=== PATIENT | female | born 1940 | race Caucasian/White ===

== ENCOUNTER 2022-06-18 14:35 | Emergency (ER) | payer MEDICARE, OTHER, SELFPAY ==
[2022-06-18 14:35] VITALS: BP 133/87; PULSE 79; RESP 18; TEMP 35.5; O2SAT 96; BMI 22.1
--- NOTE | 2022-06-18 15:01 | ED.VIS.BACK ---
HPI History of Present Illness Chief Complaint: Back Narrative Narrative: 82-year-old male past medical history of hypertension and hyperlipidemia presents with low back pain after lifting furniture 2 days ago. She states that she was moving and lifting furniture on Sunday and felt a pop in her low back. She has not had problems with her lumbar spine in the past. She denies any red flag signs such as fever or chills, no loss of bowel or bladder, no saddle anesthesia. The pain does not radiate down her legs. It is somewhat worse with movement. She has been taking Tylenol with mild relief. As she states that she heard and felt a loud pop, she presents to the emergency department wanting evaluation for her low back pain. [facility] Medical History Atherosclerotic heart disease of [place] coronary artery without angina pectoris Essential hypertension Mixed hyperlipidemia Presence of stent in coronary artery (~10/27/10) Home Medications aspirin 81 mg tablet,delayed release (Adult Low Dose Aspirin) 81 mg PO DAILY 11/23/20 [History Last Taken Unknown] atorvastatin 10 mg tablet 10 mg PO QHS 11/23/20 [History Last Taken Unknown] oxyquinoline 0.025 %-sodium lauryl sulfate 0.01 % vaginal gel (Trimo-Arana Jelly) ea vaginal DIRECTED 11/23/20 [History Last Taken Unknown] Allergy/AdvReac Type Severity Reaction Status Date / Time No Known Allergies Allergy Verified 06/18/22 14:37 Family History Mother Cancer Pancreatic Father Cancer Prostate Surgical History History of appendectomy Presence of coronary angioplasty implant and graft (~10/27/10) Social History Smoking Status: Never smoker alcohol intake: never substance use type: does not use caffeine: Yes Type: coffee Number of servings: 2 ROS ROS ED ROS Narrative Constitutional: No fever, no chills. HEENT: No sore throat. No neck pain. No loss of vision. No rhinorrhea. Cardiovascular: No chest pain. No palpitations. No pedal edema. Respiratory: No cough, no shortness of breath. Abdominal: No abdominal pain. No nausea. No vomiting. Genitourinary: No dysuria. No hematuria. Musculoskeletal: No myalgias. No arthralgias. Low back pain, right paraspinal, worse with movement. Neurologic: No headaches. No dizziness. No lightheadedness. Skin: No rash. No change in color. Psychiatric: No depression. No anxiety. EXAM Physical Exam Narrative Exam Narrative: Afebrile. Vital signs noted. HEENT: Normocephalic. Atraumatic. PERRL, EOMI. Neck soft and supple. No point tenderness or step off. Cardiovascular: Regular rate and rhythm. No murmurs, rubs, or gallops appreciated. Respiratory: No tachypnea. Lungs clear to auscultation bilaterally. Gastrointestinal: Abdomen soft, nontender, with normoactive bowel sounds. No rebound or guarding. Neurological: Awake. Alert. Nonfocal, nonlateralizing. Straight leg raising is negative bilaterally. No cross symptoms. Patellar DTRs equal and symmetric. Skin: No rash. Normal color. No pallor. Musculoskeletal: No pedal edema. Full range of motion extremities. Mild tenderness to palpation right paraspinal musculature. No point tenderness or step-off. Const Vital Signs: 06/18/22 14:35 Temperature 96 F L Temperature Source Temporal Pulse Rate 79 Respiratory Rate 18 Blood Pressure 133/87 H Blood Pressure Mean 102 Pulse Ox 96 Oxygen Delivery Method Room Air MDM MDM MDM Narrative Medical decision making narrative: Patient declines any stronger analgesics here in the emergency department. Concern would be for compression fracture. She may have more of a lumbosacral strain. X-rays of the lumbar spine will be obtained and interpreted by myself. I have low concern for cauda equina syndrome as she has a normal neurological examination and does not complain of any other symptoms except for localized pain in her right paraspinal low back. I reviewed and interpreted her lumbar x-rays. There are a lot of degenerative changes and there is malalignment. There is no prior with which to compare so I am concerned that there may be underlying fracture given her pain, and the appearance of the alignment of the vertebral bodies. I reviewed the radiology report for the lumbar spine x-rays which shows diffuse degenerative disc disease without acute bony abnormality, but 3 mm of spondylolisthesis of L4 on L5. CT of the lumbar spine was obtained. I reviewed the radiology report, and it shows mild acute to subacute compression fracture of L1. However, that is not where the patient is having pain. Regardless, she was informed of the compression fracture, and she was offered narcotic pain medications but declined. She states she would prefer to take Tylenol and follow-up with her primary care provider. I feel she can be discharged safely home with follow-up. Return instructions to the emergency department were reviewed. Disposition is discharged home in stable condition. Radiography Diagnostic Testing: Clinical Impression(s) from Imaging Studies Lumbar Spine X-Ray 06/18/22 15:05 IMPRESSION: Diffuse degenerative disc disease without acute bony abnormality. Electronically Signed: Aníbal Holden MD at 16:09 EDT , Lumbar Spine CT 06/18/22 15:26 IMPRESSION: Mild acute to subacute compression fracture of L1. Electronically Signed: Aníbal Holden MD at 16:47 EDT , Discharge Plan Triage Chief Complaint: Back ED Provider: Fernando Benitez Dx/Rx/DC Orders Clinical Impression: Sprain of lumbar spine, Low back pain, Spondylolisthesis at L4-L5 level, Compression fracture of L1 lumbar vertebra Instructions: ED Back Pain (Acute or Chronic), ED Back Sprain/Strain, ED Fracture, Vertebral Compression Prescriptions: No Action atorvastatin 10 mg tablet 10 mg PO QHS aspirin [Adult Low Dose Aspirin] 81 mg tablet,delayed release (DR/EC) 81 mg PO DAILY Trimo-Arana Jelly 0.025-0.01 % gel vaginal DIRECTED Primary Care Provider: Taryn Fry Referrals: Taryn Fry MD [[facility]] - 3-5 Days if not improving Disposition Disposition: Home, Self Care
--- NOTE | 2022-06-18 15:05 | RAD_ITS ---
INDICATION: Back pain after moving furniture, no radiculopathy EXAMINATION/TECHNIQUE: X-RAY - XR Spine Lumbar 2 or 3 Views COMPARISON: None. FINDINGS: VERTEBRAE: Preserved vertebral body height. No acute fracture. 3 mm spondylolisthesis at L4-5. Preservation of the normal lumbar lordosis. Mild scoliosis with rotatory component. DISCS: Diffuse degenerative disc space loss from L2-3 through L4-5. INCLUDED ABDOMEN: Included bowel gas pattern is non-obstructive. RAD/Lumbar Spine 2 or 3 Views IMPRESSION: Diffuse degenerative disc disease without acute bony abnormality. Electronically Signed: Aníbal Holden MD at 16:09 EDT ,
--- NOTE | 2022-06-18 15:26 | CT_ITS ---
INDICATION: back pain, suspected fracture EXAMINATION: CT LUMBAR SPINE - CT Spine Lumbar W/O Contrast Injection TECHNIQUE: Helically acquired images were obtained of the lumbar spine. 2D reformats were reviewed. A radiation dose optimization technique was used for this scan. IV Contrast dosage and agent: None. RADIATION DOSAGE (If Supplied By Facility): CTDIvol = ( 13.82 ) mGy, DLP = ( 342.75 ) mGycm COMPARISON: None FINDINGS: VERTEBRAE: Mild inferior endplate deformity with minimal overall loss of height L1 vertebral body. Cortical characteristics suggest possible acute to subacute chronicity. Remaining vertebral bodies without loss of height. Minimal retrolisthesis L2 on L3 with minimal spondylolisthesis L4 on L5. DISCS and SPINAL CANAL: Severe disc space narrowing L2-3, L3-4 and L4-5. VISUALIZED ABDOMEN: Visualized abdominal aorta is not dilated. CT/Spine Lumbar without Contrast IMPRESSION: Mild acute to subacute compression fracture of L1. Electronically Signed: Aníbal Holden MD at 16:47 EDT ,
[2022-06-18 17:05] VITALS: RESP 14
== END 2022-06-18 17:08 | disposition home or self-care (01) ==
PROVIDERS: Emergency Provider Emergency Medicine; PCP Internal Medicine; Visit Provider Emergency Medicine
DX: M48.56XA Collapsed vertebra, not elsewhere classified, lumbar region, initial encounter for fracture (principal); E78.2 Mixed hyperlipidemia; I10 Essential (primary) hypertension; I25.10 Atherosclerotic heart disease of native coronary artery without angina pectoris; M43.16 Spondylolisthesis, lumbar region; S33.5XXA Sprain of ligaments of lumbar spine, initial encounter; X50.0XXA Overexertion from strenuous movement or load, initial encounter
CPT/HCPCS: 72100; 72131; 99282

== ENCOUNTER 2022-11-06 08:06 | Emergency (ER) | payer MEDICARE, OTHER, SELFPAY ==
[2022-11-06 08:06] VITALS: BP 145/88; PULSE 92; RESP 18; TEMP 36.1; O2SAT 99; BMI 20.1
--- NOTE | 2022-11-06 08:40 | EDS_ITS ---
HPI HPI - GI History of Present Illness Chief Complaint: Abd Pain Informant: patient Abdominal Pain/Flank Pain Onset: Yesterday Context: Gradual Onset Timing: Continuous Quality: Sharp Location: RLQ Worsened by: Nothing Relieved by: Nothing Nausea/Vomiting/Emesis GI Symptom: Negative for Nausea or Vomiting Diarrhea/Melena/Hematochezia GI Symptom: Negative for Diarrhea, Melena or Hematochezia Associated Symptoms Associated Symptoms: Negative for Dysuria, Frequency or Hematuria Narrative Narrative: Patient presents with abdominal pain that began yesterday. Patient states it came on gradually. Patient states it has been constant. Patient describes her pain as sharp. Patient states the pain is over the right lower abdomen. Patient states nothing makes it better and nothing makes it worse. Patient denies any nausea or vomiting. Patient denies any diarrhea, melena, or hematochezia. Patient denies any dysuria, frequency, or hematuria. Patient denies any fevers or chills. PFSH PFSH Medical History Atherosclerotic heart disease of [place] coronary artery without angina pectoris Essential hypertension Mixed hyperlipidemia Presence of stent in coronary artery (~10/27/10) Home Medications aspirin 81 mg tablet,delayed release (Adult Low Dose Aspirin) 81 mg PO DAILY 11/23/20 [History Last Taken Unknown] atorvastatin 10 mg tablet 10 mg PO QHS 11/23/20 [History Last Taken Unknown] oxyquinoline 0.025 %-sodium lauryl sulfate 0.01 % vaginal gel (Trimo-Arana Jelly) ea vaginal DIRECTED 11/23/20 [History Last Taken Unknown] sulfamethoxazole 800 mg-trimethoprim 160 mg tablet 1 tab PO BID #6 TABLETS 11/06/22 [Rx Last Taken Unknown] Allergy/AdvReac Type Severity Reaction Status Date / Time No Known Allergies Allergy Verified 06/18/22 14:37 Family History Mother Cancer Pancreatic Father Cancer Prostate Surgical History History of appendectomy Presence of coronary angioplasty implant and graft (~10/27/10) Social History Smoking Status: Never smoker alcohol intake: never substance use type: does not use caffeine: Yes Type: coffee Number of servings: 2 ROS ROS ED Constitutional Constitutional ED: Denies chills or fever(s) Eyes Eyes: Denies blurry vision or change in vision ENT ENT ED: Denies rhinorrhea or sore throat Cardiovascular Cardiovascular: Denies chest pain or palpitations Respiratory/Chest Respiratory/Chest: Denies cough or dyspnea Gastrointestinal Gastrointestinal: Reports abdominal pain; Denies nausea or vomiting Genitourinary Genitourinary ED: Denies dysuria or hematuria Musculoskeletal Musculoskeletal: Denies back pain or neck pain Integumentary Denies abscess or rash Neurologic Neurologic: Denies headache(s) or weakness Allergic/Immunologic Allergic/Immunologic ED: Denies mouth swelling or urticaria EXAM Physical Exam Const Vital Signs: 11/06/22 08:06 11/06/22 11:00 Temperature 96.9 F L Temperature Source Temporal Pulse Rate 92 Respiratory Rate 18 16 Blood Pressure 145/88 H Blood Pressure Mean 107 Pulse Ox 99 Oxygen Delivery Method Room Air Positive well nourished and well developed General Appearance ED: well developed and NAD HEENT Reports moist mucous membranes Neck supple and no JVD Resp normal respiratory effort and clear to auscultation bilaterally Cardio regular rate, regular rhythm and no murmurs GI normal to inspection, nondistended, normoactive bowel sounds Palpation: soft and tender RLQ; Negative for guarding or rebound tenderness present Extremity normal to inspection General Extremety ED: Negative for edema or tenderness General Extremity: Negative for edema Neuro oriented x3, CN's II-XII intact bilaterally and no sensory deficits noted Sensorium / Orientation: alert Motor Exam: strength 5/5 throughout Psych mental status grossly normal Skin no rashes or lesions noted MDM MDM MDM Narrative Medical decision making narrative: Differential diagnosis includes bowel obstruction, perforation, colitis, urinary tract infection, ureteral calculus, and mesenteric adenitis. CT scan of the abdomen pelvis will be obtained to assess for ureteral calculus, bowel obstruction, and perforation. CBC will be obtained to assess for leukocytosis and anemia. Comprehensive metabolic profile will be obtained to assess for hepatic function, renal function, and electrolyte abnormality. Urinalysis will be obtained to assess for urinary tract infection and hematuria. Lab Data Attestation: I reviewed the patient's lab results. Lab results narrative: CBC was reviewed and was within normal limits. Comprehensive metabolic profile was reviewed and was within normal limits. Urinalysis was reviewed. Leukocyte esterase was 100. There were 10-25 white blood cells and 1+ bacteria. Labs: Laboratory Results - last 24 hr 11/06/22 11/06/22 09:15 09:52 WBC 6.8 RBC 4.17 L Hgb 13.0 Hct 40.2 MCV 96.4 MCH 31.2 MCHC 32.3 RDW Std Deviation 49.2 H RDW Coeff of Bruce 13.8 Plt Count 296 MPV 10.1 Immature Gran % (Auto) 0.100 Neut % (Auto) 67.9 Lymph % (Auto) 15.8 L [place] % (Auto) 13.0 H Eos % (Auto) 2.5 Baso % (Auto) 0.7 Absolute Neuts (auto) 4.6 Absolute Lymphs (auto) 1.08 Nucleated RBC % 0 Sodium 144 Potassium 3.7 Chloride 107 Carbon Dioxide 29.0 Anion Gap 8 BUN 23 H Creatinine 0.75 Estim Creat Clear Calc 35.38 Est GFR (MDRD) Af Amer 95 Est GFR (MDRD) Non-Af 79 BUN/Creatinine Ratio 30.7 H Glucose 115 H Calcium 8.9 Total Bilirubin 0.50 AST 15 ALT 13 Alkaline Phosphatase 75 Total Protein 6.6 Albumin 3.4 Globulin 3.2 Albumin/Globulin Ratio 1.1 Urine Color Yellow Urine Clarity Sl. Cloudy Urine pH 5.0 Ur Specific [place] 1.020 Urine Protein 15 H Urine Glucose (UA) Normal Urine Ketones 5 H Urine Occult Blood 25 H Urine Nitrite Negative Urine Bilirubin Negative Urine Urobilinogen Normal Ur Leukocyte Esterase 100 H Urine RBC 0-5 SEEN Urine WBC 10-25 SEEN Ur Squamous Epith Cells 0-5 SEEN Ur Transition Epith Cell 0-5 SEEN Urine Bacteria 1+ Urine Mucus 0 SEEN Radiography Diagnostic Testing: Clinical Impression(s) from Imaging Studies Abdomen/Pelvis CT 11/06/22 08:46 IMPRESSION: Small right adrenal adenoma measuring 9 mm. Small hiatal hernia. Distended urinary bladder. Electronically Signed: Prosper Comer MD at 10:06 EDT , CT scan of the abdomen pelvis was obtained. There is a small right adrenal adenoma measuring 9 mm. There is a small hiatal hernia. There is no acute abnormality noted. This was interpreted by the radiologist and was also independently reviewed by myself. Treatment and Re-Evaluation :: Patient was given IV fluids. Patient was advised of her findings. Urine culture was ordered. Patient was given a dose of Bactrim here. Patient was given a prescription for Bactrim. Patient was instructed to drink plenty of fluids. Patient was instructed to follow-up with her primary care physician in 5 to 7 days. Patient understood and was agreeable with the plan. All questions were answered. Discharge Plan Triage Chief Complaint: Abd Pain ED Provider: Kwaku Jackson Dx/Rx/DC Orders Clinical Impression: Urinary tract infection, Essential hypertension Instructions: ED Cystitis Female Adult Prescriptions: New sulfamethoxazole-trimethoprim [sulfamethoxazole-trimethoprim] 800-160 mg tablet 1 tab PO BID Qty: 6 0RF No Action atorvastatin 10 mg tablet 10 mg PO QHS aspirin [Adult Low Dose Aspirin] 81 mg tablet,delayed release (DR/EC) 81 mg PO DAILY Trimo-Arana Jelly 0.025-0.01 % gel vaginal DIRECTED Primary Care Provider: Taryn Fry Referrals: Taryn Fry MD [Primary Care Provider] - 5-7 Days Disposition Disposition: Home, Self Care
--- NOTE | 2022-11-06 08:46 | CT_ITS ---
STUDY: CT ABDOMEN AND PELVIS WITHOUT CONTRAST REASON FOR EXAM: Female, 82 years old. Right lower quadrant pain. History of prior appendectomy. RADIATION DOSAGE (If Supplied By Facility): CTDIvol = ( 6.08 ) mGy, DLP = ( 259.74 ) mGycm TECHNIQUE: Transaxial images were obtained from the dome of the diaphragm to the symphysis pubis without oral contrast, and without intravenous contrast. Sagittal and coronal images were reconstructed. Individualized dose optimization techniques were used for this CT. COMPARISON: None. FINDINGS: Increased linear markings at the lung bases slightly more prominent in the posterior medial segment of the left lower lobe suggests scarring. Coronary artery calcification. Calcification of mitral valve annulus. Minimal anterior pericardial thickening. Normal liver. Normal gallbladder and extrahepatic biliary system. Normal spleen. Normal pancreas. There is a small, circumscribed, smooth, low attenuation right adrenal mass, consistent with an adrenal adenoma. This measures 9.1 mm. Normal left adrenal gland. 3 mm nonobstructive calculus in the lower pole calyx of the right kidney. Focal calcification in the anterior medial aspect of the superior pole of the left kidney. There is a small hiatal hernia. Normal small intestine. There are multiple colonic diverticula consistent with diverticulosis. There is non-visualization of the appendix. There is diffuse atherosclerotic calcification of the abdominal aorta and its major visceral branches, without a demonstrated aneurysm. Normal inferior vena cava. Normal retroperitoneum. Distended urinary bladder. Calcified fibroid uterus. Normal abdominal wall. There are diffuse degenerative changes of the visualized lumbar spine. Dextroscoliosis. Complete collapse of the L1 vertebrae. CT/Abdomen/Pelvis without Cont IMPRESSION: Small right adrenal adenoma measuring 9 mm. Small hiatal hernia. Distended urinary bladder. Electronically Signed: Prosper Comer MD at 10:06 EDT ,
[2022-11-06 09:26] LABS: Absolute Lymphocyte Count 1.08 X10^3/uL (0.83-4.51); Absolute Neutrophil Count 4.6 X10^3/uL (2.0-7.7); Basophil# 0.05 X10^3/uL; Basophil% 0.7 % (0-1); Eosinophil# 0.17 X10^3/uL; Eosinophils% 2.5 % (0-5); Hematocrit 40.2 % (37-47); Lymphocyte # 1.08 X10^3/ul (0.83-4.51); Lymphocyte % 15.8 % (19-41); Mean Corp Hgb Conc 32.3 g/dL (32-36); Mean Corpuscular Hgb 31.2 pg (27.0-32.0); Mean Corpuscular Volume 96.4 fL (81-99); Mean Platelet Vol. 10.1 fl (6.2-12.0); Monocyte# 0.89 X10^3/uL; NRBC Flagged by Analyzer 0 % (0-5); Neutrophil # 4.64 X10^3/uL (2.7-7.7); Neutrophil % 67.9 % (47-70); Platelet Count 296 K/mm3 (150-450); RBC Distribution Width CV 13.8 % (11.6-14.6); RBC Distribution Width SD 49.2 fl (35.1-43.9); Red Blood Count 4.17 M/mm3 (4.2-5.4); White Blood Count 6.8 K/mm3 (4.4-11.0)
[2022-11-06 09:39] LABS: ALB/GLOB Ratio 1.1 RATIO (0.9-2.4); AST(SGOT) 15 U/L (15-37); Alanine Aminotransfer ALT/SGPT 13 U/L (13-56); Albumin, Serum 3.4 g/dL (3.2-5.0); Alkaline Phosphatase 75 U/L (45-117); Anion Gap 8 (5-15); BUN 23 mg/dL (7-18); BUN/Creat Ratio 30.7 RATIO (10-20); Calcium,Total 8.9 mg/dL (8.5-10.1); Chloride 107 mmol/L (98-107); Creatinine, Serum 0.75 mg/dL (0.55-1.02); EST Glomerular Filtration Rate 79 mL/min (>60); Est Glom Filt Rate - Afr Amer 95 mL/min (>60); Estimated Creatinine Clearance 35.38 ml/min; Globulin 3.2 g/dL (2.2-4.2); Glucose 115 mg/dL (74-106); Potassium 3.7 mmol/L (3.5-5.1); Protein, Total 6.6 g/dL (6.4-8.2); Sodium Level 144 mmol/L (136-145)
[2022-11-06] MEDS: 0.9% Normal Saline (1000mL) 1,000 ML 1000 ML IV (09:45)
[2022-11-06 10:05] LABS: Mucous, Urine 0 SEEN /hpf (<or=2+)
[2022-11-06 10:42] LABS: Color, Urine Yellow (Yellow); Glucose, Dipstick Normal (Normal); Ketone-Dipstick 5 mg/dl (Negative); Leukocyte Esterase-Dipstick 100 /ul (Negative); Nitrite-Dipstick Negative (Negative); Occult Blood-Urine 25 /ul (Negative); Protein-Dipstick 15 mg/dl (Negative); Urine Bilirubin Dipstick Negative (Negative); Urine Clarity Sl. Cloudy (Clear); Urine Urobilinogen Normal (Normal)
[2022-11-06 11:00] VITALS: RESP 16
[2022-11-06 11:16] LABS: Bacteria 1+ /hpf (None Seen); Red Blood Cells-Urine 0-5 SEEN /hpf (0-5); Squamous Epithelial Cells - UA 0-5 SEEN /hpf (5-10); Transitional Epithelial - Ur 0-5 SEEN /hpf (0-5); White Blood Cells 10-25 SEEN /hpf (0-5)
[2022-11-06] MEDS: Smz/Tmp Ds Tablet 1 TABLET PO (11:43)
== END 2022-11-06 11:45 | disposition home or self-care (01) ==
PROVIDERS: Emergency Provider Emergency Medicine; PCP Internal Medicine; Visit Provider Emergency Medicine
DX: N39.0 Urinary tract infection, site not specified (principal); I10 Essential (primary) hypertension; I25.10 Atherosclerotic heart disease of native coronary artery without angina pectoris; Z95.5 Presence of coronary angioplasty implant and graft
CPT/HCPCS: 74176; 80053; 81001; 85025; 87086; 87088; 96360; 96361; 99284; J7030; A4216

== ENCOUNTER 2022-12-01 14:51 | Inpatient (IN) | payer MEDICARE, OTHER, SELFPAY ==
[2022-12-01 14:54] VITALS: BP 121/77; PULSE 96; RESP 18; TEMP 36.2; O2SAT 95
--- NOTE | 2022-12-01 16:31 | ED.VIS.LOWEX ---
HPI History of Present Illness Chief Complaint: Lower Extremity Injury Narrative Narrative: 82-year-old female presenting with nontraumatic left hip pain. She states that she twisted something a couple weeks ago. She is progressively having worse pain in the hip. It radiates down the left knee. She did not fall or have any direct trauma. Difficulty ambulating secondary to pain but she is able to ambulate. [facility] Medical History Atherosclerotic heart disease of [place] coronary artery without angina pectoris Essential hypertension Mixed hyperlipidemia Presence of stent in coronary artery (~10/27/10) Home Medications aspirin 81 mg tablet,delayed release (Adult Low Dose Aspirin) 81 mg PO DAILY 11/23/20 [History Last Taken Unknown] atorvastatin 10 mg tablet 10 mg PO QHS 11/23/20 [History Last Taken Unknown] Allergy/AdvReac Type Severity Reaction Status Date / Time No Known Allergies Allergy Verified 12/01/22 14:53 Family History Mother Cancer Pancreatic Father Cancer Prostate Surgical History History of appendectomy Presence of coronary angioplasty implant and graft (~10/27/10) Social History Smoking Status: Never smoker alcohol intake: never substance use type: does not use caffeine: Yes Type: coffee Number of servings: 2 ROS ROS ED Constitutional Constitutional ED: Denies chills, fever(s) or sweats Eyes Eyes: Denies blurry vision or change in vision ENT ENT ED: Denies ear pain or sore throat Cardiovascular Cardiovascular: Denies chest pain, palpitations or racing heartbeat Respiratory/Chest Respiratory/Chest: Denies cough, dyspnea or sputum Gastrointestinal Gastrointestinal: Denies abdominal pain, constipation, diarrhea, nausea or vomiting Genitourinary Genitourinary ED: Denies dysuria, hematuria or urinary frequency Musculoskeletal Musculoskeletal: Reports other Details: Left hip pain ; Denies arthralgias, myalgias or neck pain Integumentary Denies abscess, Abrasions or rash Neurologic Neurologic: Denies headache(s), paresthesias or weakness Psychiatric Psychiatric: Denies anxiety, depression, suicidal ideation or suicidal thoughts Endocrine Endocrinology: Denies polydipsia or polyuria EXAM Physical Exam Const Vital Signs: 12/01/22 14:54 Temperature 97.1 F L Temperature Source Temporal Pulse Rate 96 Respiratory Rate 18 Blood Pressure 121/77 H Blood Pressure Mean 91 Pulse Ox 95 Oxygen Delivery Method Room Air Positive well nourished General Appearance ED: NAD HEENT normocephalic and atraumatic Chest Wall inspection of chest normal Resp normal respiratory effort and no retractions Auscultation: Negative for rales, rhonchi or wheezes Cardio regular rate and regular rhythm Extremity Extremity Narrative: Pain with rotation of the left hip. No deformity. Neuro oriented x3 and CN's II-XII intact bilaterally Sensorium / Orientation: alert Motor Exam: strength 5/5 throughout Psych mental status grossly normal Skin no wounds MDM MDM MDM Narrative Medical decision making narrative: Presenting with left hip pain. Differential includes muscle strain, hip fracture. Patient has been ambulatory but states that it is very painful. X-ray of the left hip on my interpretation shows a normal head fracture. The radiologist interprets this and agrees. Case was discussed with Dr. Santiago Larson who felt that this was likely degenerative changes and recommended a CT. At this point I did add a CBC to assess white blood cell count, hemoglobin, platelets. BMP to assess renal function electrolytes. Obtain EKG for preop clearance with shows a normal sinus rhythm at a ventricular of 82 bpm without sign ischemic change or ectopy. High-sensitivity troponin is 10. I obtained a preop chest x-ray which on my interpretation shows no acute process. CT of the left hip was obtained which shows acute comminuted fracture of the femoral head. Dr. Larson is notified and recommends that we call the hospitalist for the admission. I spoke with the hospitalist and patient was admitted in stable condition. Impression: 1. Left femoral head fracture Lab Data Labs: Laboratory Results - last 24 hr 12/01/22 17:28 WBC 9.0 RBC 4.39 Hgb 13.2 Hct 42.1 MCV 95.9 MCH 30.1 MCHC 31.4 L RDW Std Deviation 46.8 H RDW Coeff of [place] 13.2 Plt Count 431 MPV 8.9 Immature Gran % (Auto) 0.300 Neut % (Auto) 68.9 Lymph % (Auto) 16.2 L [place] % (Auto) 13.3 H Eos % (Auto) 0.7 Baso % (Auto) 0.6 Absolute Neuts (auto) 6.2 Absolute Lymphs (auto) 1.45 Nucleated RBC % 0 Sodium 139 Potassium 3.7 Chloride 105 Carbon Dioxide 27.0 Anion Gap 7 BUN 18 Creatinine 0.80 Est GFR (MDRD) Af Amer 89 Est GFR (MDRD) Non-Af 73 BUN/Creatinine Ratio 22.6 H Glucose 91 Calcium 9.3 Troponin I High Sens 10 Radiography Diagnostic Testing: Clinical Impression(s) from Imaging Studies Hip/Pelvis X-Ray 12/01/22 16:45 IMPRESSION: Flattening and deformity of the femoral head with suspected acute fracture. CT of the left hip is suggested for further evaluation. Electronically Signed: Shae Rogers MD at 17:05 EDT Reading Location ID and State: Jada Arenas MD Tel , Service support , Lower Extremity CT 12/01/22 17:21 IMPRESSION: Acute comminuted fracture of the left femoral head. Electronically Signed: Shae Rogers MD at 18:21 EDT Reading Location ID and State: Jada Arenas MD Tel , Service support , Chest X-Ray 12/01/22 17:47 IMPRESSION: No radiographic evidence of acute cardiopulmonary disease. Electronically Signed: Shae Rogers MD at 18:23 EDT Reading Location ID and State: Jada Arenas MD Tel , Service support , Discharge Plan Triage Chief Complaint: Lower Extremity Injury ED Provider: Brian Veronica Dx/Rx/DC Orders Prescriptions: No Action atorvastatin 10 mg tablet 10 mg PO QHS aspirin [Adult Low Dose Aspirin] 81 mg tablet,delayed release (DR/EC) 81 mg PO DAILY Primary Care Provider: Taryn Fry Referrals: Taryn Fry MD [Primary Care Provider] -
--- NOTE | 2022-12-01 16:45 | RAD_ITS ---
INDICATION: hip EXAMINATION/TECHNIQUE: X-RAY - XR Hip Unilateral with Pelvis when performed; 2-3 Views COMPARISON: CT abdomen pelvis 11/06/2022. FINDINGS: Flattening and deformity of the femoral head, suspicious for acute impaction fracture. Findings are new compared to the prior CT scan. Normal alignment. Soft tissues are unremarkable. No radiopaque foreign body or soft tissue gas. RAD/HIP, UNI W/ Pelvis 2-3 Views IMPRESSION: Flattening and deformity of the femoral head with suspected acute fracture. CT of the left hip is suggested for further evaluation. Electronically Signed: Shae Rogers MD at 17:05 EDT Reading Location ID and State: [id number] / Tel , Service support ,
[2022-12-01] MEDS: Ketorolac 30 MG/ML Syringe 15 MG IM (16:56)
--- NOTE | 2022-12-01 17:08 | EKG12_ITS ---
Test Reason : HIP PAIN Blood Pressure : / mmHG Vent. Rate : 082 BPM Atrial Rate : 082 BPM P-R Int : 120 ms QRS Dur : 072 ms QT Int : 378 ms P-R-T Axes : 066 050 060 degrees QTc Int : 441 ms Normal sinus rhythm Low voltage QRS Borderline ECG Confirmed by ROMINA DHILLON, VIDAL ([id number]), video editor BRIGETTE ALBA ([id number]) on 12/05/2022 11:49:43 AM Referred By: CLARITA Confirmed By:VIDAL VANEGAS MD
--- NOTE | 2022-12-01 17:21 | CT_ITS ---
EXAM: CT LEFT LOWER EXTREMITY WITHOUT INTRAVENOUS CONTRAST CLINICAL INDICATION: hip fracture TECHNIQUE: Helically acquired images were obtained of the left lower extremity without intravenous contrast. 2-D reformats were performed by the technologist. This CT exam was performed using one or more of the following dose reduction techniques: automated exposure control, adjustment of the mA and/or kV according to patient size, and/or use of iterative reconstruction technique. COMPARISON: No relevant prior studies available. FINDINGS: BONES/JOINTS: Acute to subacute comminuted fracture of the left femoral head, greatest medially. 9 mm loose fragment in the medial joint space. Femoral neck is intact. Mild joint space narrowing superolaterally. SOFT TISSUES: No soft tissue swelling or gas. CT/Extremity Lower without Contra IMPRESSION: Acute comminuted fracture of the left femoral head. Electronically Signed: Shae Rogers MD at 18:21 EDT Reading Location ID and State: [id number] / Tel , Service support ,
[2022-12-01 17:40] LABS: Absolute Lymphocyte Count 1.45 X10^3/uL (0.83-4.51); Absolute Neutrophil Count 6.2 X10^3/uL (2.0-7.7); Basophil# 0.05 X10^3/uL; Basophil% 0.6 % (0-1); Eosinophil# 0.06 X10^3/uL; Eosinophils% 0.7 % (0-5); Hematocrit 42.1 % (37-47); Hemoglobin 13.2 g/dL (12.0-15.0); Lymphocyte # 1.45 X10^3/ul (0.83-4.51); Lymphocyte % 16.2 % (19-41); Mean Corp Hgb Conc 31.4 g/dL (32-36); Mean Corpuscular Hgb 30.1 pg (27.0-32.0); Mean Corpuscular Volume 95.9 fL (81-99); Mean Platelet Vol. 8.9 fl (6.2-12.0); Monocyte# 1.19 X10^3/uL; Monocyte% 13.3 % (0-10); NRBC Flagged by Analyzer 0 % (0-5); Neutrophil # 6.18 X10^3/uL (2.7-7.7); Neutrophil % 68.9 % (47-70); Platelet Count 431 K/mm3 (150-450); RBC Distribution Width CV 13.2 % (11.6-14.6); RBC Distribution Width SD 46.8 fl (35.1-43.9); Red Blood Count 4.39 M/mm3 (4.2-5.4)
--- NOTE | 2022-12-01 17:47 | RAD_ITS ---
INDICATION: preop EXAMINATION/TECHNIQUE: X-RAY - XR Chest 1 View COMPARISON: FINDINGS: LINES/DEVICES: None. LUNGS: No consolidation, edema or effusion. No pneumothorax. MEDIASTINUM AND CARDIOVASCULAR STRUCTURES: Cardiac silhouette not enlarged. Coronary stent. Central airways and mediastinal contour are unremarkable. BONES AND SOFT TISSUES: Unremarkable. RAD/Chest 1 View (Portable) IMPRESSION: No radiographic evidence of acute cardiopulmonary disease. Electronically Signed: Shae Rogers MD at 18:23 EDT Reading Location ID and State: [id number] / Tel , Service support ,
[2022-12-01 18:08] LABS: Anion Gap 7 (5-15); BUN 18 mg/dL (7-18); BUN/Creat Ratio 22.6 RATIO (10-20); Calcium,Total 9.3 mg/dL (8.5-10.1); Chloride 105 mmol/L (98-107); EST Glomerular Filtration Rate 73 mL/min (>60); Est Glom Filt Rate - Afr Amer 89 mL/min (>60); Glucose 91 mg/dL (74-106); Potassium 3.7 mmol/L (3.5-5.1); Sodium Level 139 mmol/L (136-145); Troponin-I HS 10 pg/mL (3.0-54.0)
--- NOTE | 2022-12-01 18:36 | HP.PCM.HOS_ITS ---
HPI - General General Date of Admission: 12/01/22 Date of Service: 12/01/22 Chief Complaint: Left hip pain HPI Narrative JOSÉ MIGUEL MCDONOUGH, is a 82 F with history of CAD s/p stenting, hypertension and hyperlipidemia who presented to [facility] ED on 12/01/22 with left hip pain. Patient seen at bedside in the ED, neighbor present. Patient sitting comfortably in bed, conversing normally, no acute distress. She reports mild left hip pain radiating down to the knee currently, it is very mild at rest and worsens with ambulation. States that the pain began about 2 weeks ago when she feels like she twisted the hip awkwardly. Pain has been worsening with ambulation since then. Patient is notably very functional at home, lives on her own. Patient otherwise denies any chest pain, shortness of breath, fevers or chills, abdominal pain, nausea or vomiting, lightheadedness or dizziness. No other acute concerns. Vitals in ED notable for mild hypertension, otherwise unremarkable. CBC and BMP unremarkable. EKG showed normal sinus rhythm, no ST changes. Hip/pelvic x-ray showed flattening and deformity of femoral head with suspected acute fracture. CT left hip showed acute comminuted fracture of left femoral head. [facility] Medical History Atherosclerotic heart disease of [place] coronary artery without angina pectoris Essential hypertension Mixed hyperlipidemia Presence of stent in coronary artery (~10/27/10) Home Medications aspirin 81 mg tablet,delayed release (Adult Low Dose Aspirin) 81 mg PO DAILY 11/23/20 [History Last Taken Unknown] atorvastatin 10 mg tablet 10 mg PO QHS 11/23/20 [History Last Taken Unknown] Allergy/AdvReac Type Severity Reaction Status Date / Time No Known Allergies Allergy Verified 12/01/22 14:53 Family History Mother Cancer Pancreatic Father Cancer Prostate Surgical History History of appendectomy Presence of coronary angioplasty implant and graft (~10/27/10) Social History Smoking Status: Never smoker alcohol intake: never substance use type: does not use caffeine: Yes Type: coffee Number of servings: 2 ROS Constitutional Constitutional: Denies change in weight, chills, fatigue, fever(s) or weakness Eyes Eyes: Denies change in vision Cardiovascular Cardiovascular: Denies chest pain or lightheadedness Respiratory/Chest Respiratory/Chest: Denies cough or shortness of breath at rest Gastrointestinal Gastrointestinal: Denies abdominal pain, nausea or vomiting Genitourinary Genitourinary: Denies dysuria Musculoskeletal Musculoskeletal: Reports joint pain; Denies back pain or joint swelling Neurologic Neurologic: Reports abnormal gait; Denies confusion, dizziness or focal weakness Vital Signs Vital Signs Vital Signs: 12/01/22 14:54 Temperature 97.1 F L Temperature Source Temporal Pulse Rate 96 Respiratory Rate 18 Blood Pressure 121/77 H Blood Pressure Mean 91 Pulse Ox 95 Oxygen Delivery Method Room Air Physical Exam Const alert and oriented x3 Constitutional Narrative: Pleasant elderly female, sitting comfortably in bed, conversing normally, no acute distress. General Appearance: cooperative and comfortable HEENT normocephalic, head/scalp atraumatic, hearing grossly normal bilaterally, nasal mucous membranes and turbinates normal and moist oral mucous membranes Eyes PERRL, EOMs intact bilaterally and conjunctivae normal Neck full ROM, no lymphadenopathy and supple Lymph Lymphatic: no lymphadenopathy noted Chest inspection of chest normal Resp normal respiratory effort, normal air movement, no use of accessory muscles and clear to auscultation bilaterally Cardio regular rate, regular rhythm, no murmurs and peripheral pulses 2+ throughout GI normal to inspection, nondistended, normoactive bowel sounds, soft to palpation, non-tender and non-distended Back/Spine normal ROM Extremity no pedal edema Extremity Narrative: Left hip appears grossly normal on exam, did not attempt any range of motion. Skin no rashes or lesions noted Psych mental status grossly normal Results Lab / Micro Data 12/01/22 17:28 12/01/22 17:28 Labs: Laboratory Results - last 24 hr 12/01/22 17:28: WBC 9.0, RBC 4.39, Hgb 13.2, Hct 42.1, MCV 95.9, MCH 30.1, MCHC 31.4 L, RDW Std Deviation 46.8 H, RDW Coeff of Bruce 13.2, Plt Count 431, MPV 8.9, Immature Gran % (Auto) 0.300, Neut % (Auto) 68.9, Lymph % (Auto) 16.2 L, [place] % (Auto) 13.3 H, Eos % (Auto) 0.7, Baso % (Auto) 0.6, Absolute Neuts (auto) 6.2, Absolute Lymphs (auto) 1.45, Nucleated RBC % 0, Sodium 139, Potassium 3.7, Chloride 105, Carbon Dioxide 27.0, Anion Gap 7, BUN 18, Creatinine 0.80, Est GFR (MDRD) Af Amer 89, Est GFR (MDRD) Non-Af 73, BUN/Creatinine Ratio 22.6 H, Glucose 91, Calcium 9.3, Troponin I High Sens 10 Radiology Impression Hip/Pelvis X-Ray 12/01/22 16:45 IMPRESSION: Flattening and deformity of the femoral head with suspected acute fracture. CT of the left hip is suggested for further evaluation. Electronically Signed: Shae Rogers MD at 17:05 EDT Reading Location ID and State: Jada Arenas MD Tel , Service support , Lower Extremity CT 12/01/22 17:21 IMPRESSION: Acute comminuted fracture of the left femoral head. Electronically Signed: Shae Rogers MD at 18:21 EDT Reading Location ID and State: Jada Arenas MD Tel , Service support , Chest X-Ray 12/01/22 17:47 IMPRESSION: No radiographic evidence of acute cardiopulmonary disease. Electronically Signed: Shae Rogers MD at 18:23 EDT Reading Location ID and State: Jada Arenas MD Tel , Service support , Assessment & Plan Assessment/Plan (1) Fracture of head of left femur: PLAN: Plan Patient is an 82-year-old female with history of CAD s/p stenting, hypertension and hyperlipidemia who presented to [facility] ED on 12/01/22 with left hip pain. 1. Left femoral head fracture, nontraumatic Patient states that she twisted something in her hip about 2 weeks ago. Has had worsening left hip pain with walking since then. Pain radiates down to the left knee. Notably had no fall or trauma. Hip/pelvic x-ray showed flattening and deformity of femoral head with suspected acute fracture. CT left hip showed acute comminuted fracture of left femoral head. Patient notably lives at home on her own, is very functional at baseline. ? Admit under inpatient status to [facility]. Orthopedic surgery consulted. N.p.o. at midnight. Pain control with scheduled Tylenol and as needed oxycodone and IV Dilaudid. PT/OT/case management consulted. DVT prophylaxis with SCDs for now. Follow-up a.m. labs. Chronic medical conditions: ? Hyperlipidemia: Continue home atorvastatin. ? CAD s/p stenting: Hold home aspirin tomorrow morning, resume postoperatively. ? Hypertension: Reported history but not on any home medications. Mildly hypertensive to systolics 140s on admit. Monitor for now. DVT prophylaxis: SCDs CODE STATUS: DNR CCA, DO NOT INTUBATE Expected disposition: Home with home health care versus SNF, 3 to 4 days Total clinical time spent by myself addressing the patient's medical issues, reviewing all the data, and collaborating with patient's care team: 55 minutes. Charges/Coding Visit Charges Inpatient E&M: 74014 Init Hosp L1
[2022-12-01 18:56] VITALS: BP 149/82; PULSE 89; RESP 18; TEMP 36.1; O2SAT 95
[2022-12-01 20:15] VITALS: BMI 19.2
[2022-12-01 20:16] VITALS: BMI 18.8
[2022-12-01 20:18] VITALS: BP 122/79; PULSE 89; RESP 18; TEMP 36.7; O2SAT 92
[2022-12-01] MEDS: Acetaminophen 500 MG Tablet 1000 MG PO (22:27)
[2022-12-01] MEDS: Atorvastatin Calcium 10 MG Tablet PO (22:27)
[2022-12-01] MEDS: 0.9% Saline Lock 10 ML Syringe IV (22:51)
[2022-12-02] VITALS (12 sets, daily range): BP systolic 104–133; BP diastolic 58–82; PULSE 71–92; RESP 14–18; TEMP 36.1–37.2; O2SAT 90–100
--- NOTE | 2022-12-02 | HIP_PTH ---
PATIENT: JOSÉ MIGUEL MCDONOUGH LOC: MS3 U#:[id number] AGE/SX: 82/F ROOM: [id number] RE12/01/[address]: Dr. Dimitri Harris DO : 1940 BED: 1 DIS: 12/04/2022 SPEC #: [id number] RECD: 12/04/22 09:40 STATUS: JANELLE REQ #: [id number] KARTHIK: 12/02/22 00:[address]: Santiago Larson DEPT: SURGICAL PATHOLOGY RECD BY: Earnest Valverde ENTERED: 12/04/22 09:40 SP TYPE: TOTAL HIP OTHR DR: DO Dr. Taryn Mcclain MD Dr. 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 AM:candelaria 12/07/2022 MICROSCOPIC DESCRIPTION Slides are reviewed. GROSS DESCRIPTION Received is one container labeled with the patient's name and designated femoral head and soft tissue. The specimen consists of a distorted femoral head measuring 5.0 x 4.5 x 4.5 cm. The articular surface reveals avulsed cartilage in an area measuring 5.5 cm in greatest dimension. Also present in the specimen container are multiple irregular fragments of bone and soft tissue measuring in aggregate 6.0 x 5.0 x 1.0 cm. [employer] sections are submitted in three cassettes as follows: 1 - soft tissue, 2 & 3 - bone after decalcification. / AM:candelaria 12/04/2022 TC:5 CPT: 35158, 46640
[2022-12-02 05:26] LABS: Basophil# 0.07 X10^3/uL; Eosinophil# 0.22 X10^3/uL; Eosinophils% 3.2 % (0-5); Hematocrit 37.8 % (37-47); Mean Corp Hgb Conc 31.7 g/dL (32-36); Mean Corpuscular Volume 94.5 fL (81-99); Mean Platelet Vol. 8.9 fl (6.2-12.0); Monocyte# 0.98 X10^3/uL; Monocyte% 14.4 % (0-10); NRBC Flagged by Analyzer 0 % (0-5); Neutrophil # 4.02 X10^3/uL (2.7-7.7); Platelet Count 402 K/mm3 (150-450); RBC Distribution Width CV 13.2 % (11.6-14.6); RBC Distribution Width SD 45.8 fl (35.1-43.9); White Blood Count 6.8 K/mm3 (4.4-11.0)
[2022-12-02 05:40] LABS: Anion Gap 5 (5-15); BUN 19 mg/dL (7-18); BUN/Creat Ratio 29.1 RATIO (10-20); Calcium,Total 8.8 mg/dL (8.5-10.1); Chloride 108 mmol/L (98-107); Creatinine, Serum 0.65 mg/dL (0.55-1.02); EST Glomerular Filtration Rate 92 mL/min (>60); Est Glom Filt Rate - Afr Amer 112 mL/min (>60); Estimated Creatinine Clearance 33.14 ml/min; Glucose 90 mg/dL (74-106); Potassium 3.8 mmol/L (3.5-5.1); Sodium Level 141 mmol/L (136-145)
--- NOTE | 2022-12-02 07:53 | CON.PCM_ITS ---
Assessment & Plan Assessment/Plan (1) Fracture of head of left femur: PLAN: Plan of care was discussed and reviewed at length by Dr. Santiago Larson with the patient including surgical and nonsurgical treatment options. At this time the patient does wish to proceed with surgical intervention. We discussed the indications for total hip arthroplasty versus hemiarthroplasty pending the appearance and level of degenerative change at the level of the acetabulum upon time of surgical intervention. Potential risk benefits and complications of this procedure including but not limited to infection nerve and blood vessel damage persistent pain numbness tingling paresthesias blood clot pulmonary embolism and the requirement for possible further surgery were discussed and reviewed at length all of the patient's questions were answered she did agree to the above-stated procedure and signed the appropriate consent form we will plan to use aspirin 81 mg twice daily for 1 month postoperative to minimize the risk of DVT. HPI Consult Data Date of Consult: 12/02/22 HPI Narrative Reason for Consultation: Left hip pain HPI Narrative: JOSÉ MIGUEL MCDONOUGH, is an 82-year-old otherwise healthy female that presented to [facility] emergency department yesterday with increased left hip pain. She had had pre- existing pain that started about 3 weeks ago with no known injury. She had previously had CT scan of abdomen pelvis November 06, 2022 that was otherwise within normal limits outside of some pre-existing left hip arthritic change. X- rays and updated CT scan of the left hip were consistent with femoral head fracture. She was admitted to the floor at [facility] orthopedics was consulted. She does not ambulate with an assistive device. She denies history of DVT or pulmonary embolism. No personal history of cancer. [facility] Medical History Atherosclerotic heart disease of [place] coronary artery without angina pectoris Essential hypertension Mixed hyperlipidemia Presence of stent in coronary artery (~10/27/10) Home Medications aspirin 81 mg tablet,delayed release (Adult Low Dose Aspirin) 81 mg PO DAILY heart health 11/23/20 [History Last Taken 11/30/22 21:00] atorvastatin 10 mg tablet 10 mg PO QHS cholesterol 11/23/20 [History Last Taken 11/30/22 21:00] Allergy/AdvReac Type Severity Reaction Status Date / Time No Known Allergies Allergy Verified 12/01/22 20:29 Family History Mother Cancer Pancreatic Father Cancer Prostate Surgical History History of appendectomy Presence of coronary angioplasty implant and graft (~10/27/10) Social History Smoking Status: Never smoker alcohol intake: never substance use type: does not use caffeine: Yes Type: coffee Number of servings: 2 ROS ROS Narrative Review of systems are documented in the electronic medical record were personally reviewed with the patient pertinent positives and negatives are documented with in this consultation Physical Exam Narrative Patient was examined by Dr. Santiago Larson. She was resting comfortably in the supine position in the hospital bed. Left hip shortened externally rotated. Gentle mobility left hip with significant increased hip pain. No pain at the level of the knee ankle or foot. No calf pain or swelling. Patient is able to actively plantar and dorsiflex bilateral ankles against resistance sensation intact light touch pedal pulses present equal bilaterally neurovascularly intact. Lab / Micro Data 12/02/22 05:15 12/02/22 05:15 Labs: Laboratory Results - last 24 hr 12/01/22 17:28: WBC 9.0, RBC 4.39, Hgb 13.2, Hct 42.1, MCV 95.9, MCH 30.1, MCHC 31.4 L, RDW Std Deviation 46.8 H, RDW Coeff of Bruce 13.2, Plt Count 431, MPV 8.9, Immature Gran % (Auto) 0.300, Neut % (Auto) 68.9, Lymph % (Auto) 16.2 L, [place] % (Auto) 13.3 H, Eos % (Auto) 0.7, Baso % (Auto) 0.6, Absolute Neuts (auto) 6.2, Absolute Lymphs (auto) 1.45, Nucleated RBC % 0, Sodium 139, Potassium 3.7, Chloride 105, Carbon Dioxide 27.0, Anion Gap 7, BUN 18, Creatinine 0.80, Est GFR (MDRD) Af Amer 89, Est GFR (MDRD) Non-Af 73, BUN/Creatinine Ratio 22.6 H, Glucose 91, Calcium 9.3, Troponin I High Sens 10 12/02/22 05:15: WBC 6.8, RBC 4.00 L, Hgb 12.0, Hct 37.8, MCV 94.5, MCH 30.0, MCHC 31.7 L, RDW Std Deviation 45.8 H, RDW Coeff of Bruce 13.2, Plt Count 402, MPV 8.9, Immature Gran % (Auto) 0.400, Neut % (Auto) 59.0, Lymph % (Auto) 22.0, [place] % (Auto) 14.4 H, Eos % (Auto) 3.2, Baso % (Auto) 1.0, Absolute Neuts (auto) 4.0, Absolute Lymphs (auto) 1.50, Nucleated RBC % 0, Sodium 141, Potassium 3.8, Chloride 108 H, Carbon Dioxide 28.0, Anion Gap 5, BUN 19 H, Creatinine 0.65, Estim Creat Clear Calc 33.14, Est GFR (MDRD) Af Amer 112, Est GFR (MDRD) Non-Af 92, BUN/Creatinine Ratio 29.1 H, Glucose 90, Calcium 8.8, Blood Type O POSITIVE, Antibody Screen NEGATIVE Radiology Impression Hip/Pelvis X-Ray 12/01/22 16:45 IMPRESSION: Flattening and deformity of the femoral head with suspected acute fracture. CT of the left hip is suggested for further evaluation. Electronically Signed: Shae Rogers MD at 17:05 EDT Reading Location ID and State: Jada Arenas MD Tel , Service support , Lower Extremity CT 12/01/22 17:21 IMPRESSION: Acute comminuted fracture of the left femoral head. Electronically Signed: Shae Rogers MD at 18:21 EDT Reading Location ID and State: Jada Arenas MD Tel , Service support , Chest X-Ray 12/01/22 17:47 IMPRESSION: No radiographic evidence of acute cardiopulmonary disease. Electronically Signed: Shae Rogers MD at 18:23 EDT Reading Location ID and State: Jada Arenas MD Tel , Service support , X-ray of left hip and pelvis as well as CT scan of left hip December 01, 2022 were reviewed findings documented above
[2022-12-02] MEDS: Cefazolin 2 GM in 0.9% Normal Saline (100mL Bag) 100 ML IV (08:26)
[2022-12-02] MEDS: TXA 1000mg in NS100 100ml (IVPB at Incision) 660 MG IV (08:54)
[2022-12-02] MEDS: JPS (Morphine 10mg/ml) OPERA.SITE (09:49)
[2022-12-02] MEDS: TXA 1000mg in NS100 100ml (IVPB at Closure) 660 MG IV (09:50)
--- NOTE | 2022-12-02 10:09 | PCM.OP.BLANK ---
Operative Report Date of Procedure: 12/02/22 Preoperative diagnosis: Left hip displaced femoral head fracture Postoperative diagnosis: Same, rule out metastatic process, rule out infection Operation: Left hip cemented hemiarthroplasty Surgeon: Dr. Santiago Larson MD Engineering Secretary: Corry Hankins PA-C Anesthesia: General Anesthesiologist; Dr. Orona EBL: 200 Fluids in: 1000 Special medications:2 gm IV [Ancef], IV Tranexamic acid IV x 2 Indications for surgery : Patient is a (82) -year-old female that has had progressive pain over the past 3 weeks that involved her left hip. Appropriate informed consent was obtained and signed. Appropriate medical workup was performed preoperatively and patient was deemed safe for surgery by the anesthesia department assistant credit manager, RINKU was utilized throughout the entire procedure. They were vital in helping with patient positioning, holding of retractors, exposing the tissues adequately for safe completion of the procedure including cutting of the bone, helping medical billing and coding specialist appropriate alignment and sizing of the components, implantation of the components, as well as wound closure, bandage application, and safe patient transfer. Without surgical appliances salesperson, physician physicians assistant, surgical time would have been significantly increased, and surgical outcome would have been less optimal. Operative findings: Patient had displaced comminuted femoral head fracture. There was white somewhat chalky material noted in the hip capsule. There was significant femoral head fracture with cartilage peeling off the femoral head. Wound classified as clean /contaminated. Surgical options involved possible Girdlestone procedure at this point, possible planning two-stage procedure with lightly press-fit stem and planning to return to cement at a later time, or proceeding with definitive 1 staged proposed cemented bipolar hemiarthroplasty in anticipation that this is likely not infection or a primary bone cancer, but possibly related to AVN/osteoporosis and/or a metastatic process . Extra time spent with debridement of the soft tissues around and under the hip capsule, acetabulum, with extra time spending with irrigation with Irrisept, irrigation with sterile Betadine, curetting proximal femur. Head could not be adequately measured as per routine. Femoral head decided size based on CT scan measurements as well as intraoperative measurements, trials in the acetabulum. Abnormal appearing bone extended beyond our femoral neck cut to the region of the lesser trochanter without cortical involvement. It was curetted out. Bone and soft tissue sent as a specimen. Intraoperative Gram stain negative for bacteria. we used a [place] Accolade C stem size #4 cemented. Bipolar 47 mm outer diameter femoral head with a +0 neck length. This reproduced there anatomy nicely. Clinically good leg lengths were noted. Good hip stability through range of motion with no undue pistoning. Standard wound closure in layers, followed by anna, followed by Mepilex dressing Details of procedure: Patient was taken to the operating room and transferred to the operating table. Given appropriate anesthetic agent by that department. Patient was then rolled into a lateral decubitus position with the involved painful hip up in the air. Appropriate timeouts had been performed. Hip had been appropriately marked with my initials. Padded anterior and posterior position was utilized. Axillary roll placed. TOMMIE hose and SCDs on the nonoperative limb utilized throughout the procedure. Operative lower extremity was prepped padded and draped in the usual orthopedic sterile fashion for the procedure. Incision was made curving over the tip of the greater trochanter posteriorly. Full thickness skin flaps are raised down on the fascia rodrigo. Fascia rodrigo was opened in length with our incision. Charnley self-retaining hip retractor was carefully placed by the surgeon. Leg was appropriately rotated by the physicians assistant. Retractor was used to lift the abductors anteriorly to visualize the piriformis tendon and external rotators. Piriformis tendon and external rotators released off the greater trochanter with the Bovie. Tagging suture was placed in each of these separately. We then split the tissue superior to the piriformis tendon through capsule and onto the pelvis. Chalky material noted within the hip joint capsule. No severe pus scant amount of clear fluid. Cultures obtained at that level as well as intra-articular. Acetabular labrum was preserved. Retractors were carefully placed around the femoral neck. Femoral head dislocated, displaced femoral head fracture identified. cutting guide was utilized to map out the proposed cut approximately 1 fingerbreadth above the lesser trochanter. This femoral neck cut was carried out with a saw. Fractured femoral head removed from the acetabulum and measured and inspected. Due to amount of fracturing appropriate size cannot be determined. Sizing based on CAT scan measurements as well as trialing femoral heads within the acetabulum. Size 47 decided upon. Appropriate trial was utilized. Sterile Betadine and Irrisept solution utilized throughout the area. Each had been allowed to bathe the bone for 2 minutes or more. No significant degenerative changes or pathology noted within the acetabulum once the soft tissues were debrided. Labrum and capsule completely preserved. A proximal femoral elevator utilized. Abnormal appearing bone at the lesser trochanter identified and curetted completely. This did not seem to involve the cortex whatsoever. 1 specimen sent. We used a sharp awl entering down inside the bone of the proximal femur. Utilized the [employer] cutting osteotome the proximal lateral greater trochanteric region. The fragment removed. Broaching was then done from the smallest broach, upto the appropriate size. Good stability was confirmed. We then trialed the construct with a standard neck length and appropriate sized femoral head. We were happy with the construct. Good stability to flexion, rotation. At this point trials removed. 2 full batches of antibiotic bone cement were mixed. 2 sponges soaked with Irrisept were placed in the acetabulum we prepared the canal with brushing. Cement restrictor was placed down to the appropriate depth. It was thoroughly irrigated clean and dry. When the cement was as the appropriate texture, we pressurized cement down in the femoral canal. The appropriate size stem then hammered into the proximal femur and seated down to a similar position as the trial had. Excess bone cement removed. Stem was held still while cement fully hardened. Pain relieving solution was injected while this was occurring. The cement was fully hardened, sponges were removed from the acetabulum. We now again trialed and appropriate neck length decided upon. It was then opened. Now impacted the appropriate sized femoral head, neck construct onto the clean dried trunion. Was noted to be stable. Hip was inspected, and joint was reduced for a final time. Good hip stability and leg lengths noted. This was then irrigated with saline and cleaned. Next the remainder of the pain relieving solution was injected carefully throughout the soft tissues of the hip joint. We did utilize standard pain relieving solution for postoperative pain injection throughout the hip joint. Closure was carried out with a combination of #1 Vicryl repairing the hip capsule as well as piriformis tendon and external rotators to bone, running #2 strata fix in the fascia rodrigo, followed by mid layer #1 Vicryl with #1 strata fix running. Next running 0 strata fix, followed by skin anna, Xeroform, Mepilex dressing. We placed TOMMIE hose and SCD on the operative leg. Patient awoken from the anesthetic and transferred back to room bed in recovery room in satisfactory condition. Plan Xarelto 10 mg daily for DVT prevention. Patient will be admitted to the hospital. Hospitalist service will continue to manage the medical issues. Hopeful discharge to home or ECF in 2-3 days. This note was generated with [employer] dictation software. It may contain incorrect words, spelling, and punctuation that were not noted in checking the note before signing.
[2022-12-02] MEDS: Lactated Ringers 1,000 ML 125 ML IV ×2 (10:48→16:09)
--- NOTE | 2022-12-02 10:55 | RAD_ITS ---
EXAM: XR LEFT HIP WITH PELVIS WHEN PERFORMED, 2 OR 3 VIEWS CLINICAL INDICATION: Post Op -- AP both hips on single shreyas/lateral of op hip PACU TECHNIQUE: Two or three views of the left hip with pelvis when performed. COMPARISON: 12/01/2022. FINDINGS: BONES/JOINTS: Left metallic hip arthroplasty with good anatomic alignment of the femoral component and acetabular component. No displaced fracture. No destructive or sclerotic lesions. Note that overlapping bowel shadows may however obscure fine detail. Sacroiliac joint is unremarkable. No widening of the pubic symphysis. SOFT TISSUES: Postoperative air and soft tissue swelling in the left hip. Metallic anna overlying the left hip. RAD/Hip Min 2 Views (Portable) IMPRESSION: Postoperative air and soft tissue swelling following successful left hip metallic hip arthroplasty when compared to preoperative radiographs of 12/01/2022. Electronically Signed: Fernando Ortiz MD at 12:26 EDT ,
--- NOTE | 2022-12-02 13:33 | PN.HOSP_ITS ---
Reason for Visit Reason for Visit: Diagnoses Unspecified fracture of head of left femur, initial encounter for closed fractu re (12/01/22) Subjective Subjective Patient was seen and examined today, she underwent a left hip hemiarthroplasty today, she is alert and does not complain of any discomfort at rest at this time. Patient states that she did not suffer a fall or trauma to the hip, according to the medical record, patient's hip pain began approximately 2 weeks ago. Objective Data Objective Data Vital Signs: Vital Signs Temp Pulse Resp BP Pulse Ox O2 Del Method 98.0 F 71 16 115/69 94 Room Air 12/02/22 11:36 12/02/22 11:36 12/02/22 11:36 12/02/22 11:36 12/02/22 11:36 12/02/22 11:36 Oxygen Delivery Method Room Air Weight: 48.4 kg Body Mass Index (BMI) 18.8 Intake & Output: Intake and Output for Last 24 Hours 11/30/22 12/01/22 12/02/22 23:59 23:59 23:59 Intake Total 1330 / 1330 Balance 1330 / 1330 Lab / Micro Data 12/02/22 05:15 12/02/22 05:15 Labs: Laboratory Results - last 24 hr 12/01/22 17:28: WBC 9.0, RBC 4.39, Hgb 13.2, Hct 42.1, MCV 95.9, MCH 30.1, MCHC 31.4 L, RDW Std Deviation 46.8 H, RDW Coeff of Bruce 13.2, Plt Count 431, MPV 8.9, Immature Gran % (Auto) 0.300, Neut % (Auto) 68.9, Lymph % (Auto) 16.2 L, [place] % (Auto) 13.3 H, Eos % (Auto) 0.7, Baso % (Auto) 0.6, Absolute Neuts (auto) 6.2, Absolute Lymphs (auto) 1.45, Nucleated RBC % 0, Sodium 139, Potassium 3.7, Chloride 105, Carbon Dioxide 27.0, Anion Gap 7, BUN 18, Creatinine 0.80, Est GFR (MDRD) Af Amer 89, Est GFR (MDRD) Non-Af 73, BUN/Creatinine Ratio 22.6 H, Gl ucose 91, Calcium 9.3, Troponin I High Sens 10 12/02/22 05:15: WBC 6.8, RBC 4.00 L, Hgb 12.0, Hct 37.8, MCV 94.5, MCH 30.0, MCHC 31.7 L, RDW Std Deviation 45.8 H, RDW Coeff of Bruce 13.2, Plt Count 402, MPV 8.9, Immature Gran % (Auto) 0.400, Neut % (Auto) 59.0, Lymph % (Auto) 22.0, [place] % (Auto) 14.4 H, Eos % (Auto) 3.2, Baso % (Auto) 1.0, Absolute Neuts (auto) 4.0, Absolute Lymphs (auto) 1.50, Nucleated RBC % 0, Sodium 141, Potassium 3.8, Chloride 108 H, Carbon Dioxide 28.0, Anion Gap 5, BUN 19 H, Creatinine 0.65, Estim Creat Clear Calc 33.14, Est GFR (MDRD) Af Amer 112, Est GFR (MDRD) Non-Af 92, BUN/Creatinine Ratio 29.1 H, Glucose 90, Calcium 8.8, Blood Type O POSITIVE, Antibody Screen NEGATIVE Micro: Microbiology 12/02/22 08:50 Incision/Surgical Site Gram Stain - Final Radiography Diagnostic Testing: Radiology Impression Hip/Pelvis X-Ray 12/01/22 16:45 IMPRESSION: Flattening and deformity of the femoral head with suspected acute fracture. CT of the left hip is suggested for further evaluation. Electronically Signed: Shae Rogers MD at 17:05 EDT Reading Location ID and State: Jada Arenas MD Tel , Service support , Lower Extremity CT 12/01/22 17:21 IMPRESSION: Acute comminuted fracture of the left femoral head. Electronically Signed: Shea Rogers MD at 18:21 EDT Reading Location ID and State: Jada Arenas MD Tel , Service support , Chest X-Ray 12/01/22 17:47 IMPRESSION: No radiographic evidence of acute cardiopulmonary disease. Electronically Signed: Shae Rogers MD at 18:23 EDT Reading Location ID and State: [id number] / Tel , Service support , Hip X-Ray 12/02/22 10:55 IMPRESSION: Postoperative air and soft tissue swelling following successful left hip metallic hip arthroplasty when compared to preoperative radiographs of 12/01/2022. Electronically Signed: Fernando Ortiz MD at 12:26 EDT , Physical Exam Const alert, oriented x3, no apparent distress, average body habitus and healthy appearing General Appearance: cooperative, well kempt and well developed Orientation / Consciousness: awake, oriented to person, oriented to place and oriented to time HEENT normocephalic, head/scalp atraumatic and moist oral mucous membranes Eyes PERRL, EOMs intact bilaterally and conjunctivae normal Neck supple, no JVD, thyroid normal and no carotid bruits General: trachea midline Resp normal respiratory effort, no retractions, no use of accessory muscles and clear to auscultation bilaterally Auscultation: Negative for rales, rhonchi or wheezes Cardio regular rate, regular rhythm, S1 normal heart sound, S2 normal heart sound, no murmurs, no rub and no gallops GI normal to inspection, nondistended, normoactive bowel sounds, soft to palpation, non-tender and non-distended Neuro oriented x3, CN's II-XII intact bilaterally, moves all extremities, no focal motor deficits and no sensory deficits noted Sensorium / Orientation: awake and alert Speech: speech normal Psych affect normal Assessment & Plan Assessment/Plan (1) Fracture of head of left femur: PLAN: Plan 1. Left hip displaced femoral head fracture-postop day 0 left hemiarthroplasty- PT and OT will see the patient, patient states that she plans on going home at the time of discharge from the hospital. #2 essential hypertension-patient is not currently on any medications, her blood pressure will be monitored #3 coronary artery disease-patient is on aspirin and Lipitor #4 hyperlipidemia-patient is on Lipitor Clinical time spent by myself addressing the patient's medical issues, reviewing all of her data, and collaborating with patient's care team: 25 minutes Charges/Coding Visit Charges Inpatient E&M: 95102 Subs Hosp L1
[2022-12-02] MEDS: Cefazolin 1 GM/50 ML BAG IV (16:09)
--- NOTE | 2022-12-02 17:35 | CASEMGMT ---
RN [facility] REHABILITATION THERAPIST CM to room to meet with patient for initial transition planning/care coordination assessment. CHANTELLE CONDON introduced self and role at [facility].? Pt voices understanding and consents to assessment at this time.? Pt resting in bed in no distress at this time.? Pt is A/O at this time and answers all questions appropriately.?? Care providers, pharmacy, and demographics verified/updated at this time. PCP: Dr Fry Specialists:[facility]/cardiology [facility]acy: [facility] Insurance: [employer] Prescription Benefit:? Yes Living Will/HPOA:?Pt states she has a LW and HCPOA, who is her son, Kong LNOK: Son/POA, Kong. Dtr, Mikala. Pt states Kong is currently in [facility] and he does not know she is in the hospital, nor does Mikala know. She does not want them notified at this time. Living Arrangements: Lives alone [place]. Independent w/ADL's and IAL's and manages her own medications. She has a neighbor who can help her, if needed. Transportation: Pt states drives self and states no transportation concerns at this time.? DME: ? Denies using any DME and denies needs.? She does have a walker available @ her home that she can use and has a comfort height commode. HHC/SNF: No hx of either. Discussed discharge planning, including SNF, HHC, and OP therapy. Pt states she wishes to discharge home and she does not think she will be homebound. Questions answered about OP therapy. Pt states she is not sure if she will want to do OP therapy either, as she does not if she will need it. She states she would be willing to take a script home w/her @ discharge and will decide later if she wishes to go. She was made aware she can take to any location of choice. Pt wishes to return home and states has no concerns with going home at time of discharge.? Pt states does not smoke or drink ETOH.? CM to follow for home oxygen needs and any further discharge planning/needs.? Pt voices no further concerns/needs at this time.? Advised pt to ask for CM if any further questions/concerns/needs arise.? Voices understanding. PLAN: ?Home w/OP therapy. Script for OP therapy placed on pt's chart. Physician to sign and script to be provided to pt @ discharge. PT/OT evals pending. Edelmira BSN RN CM
[2022-12-02] MEDS: 0.9% Saline Lock 10 ML Syringe IV (20:25)
[2022-12-02] MEDS: Senna/Docusate Sodium 1 Tablet 2 TABLET PO (20:56)
[2022-12-02] MEDS: Atorvastatin Calcium 10 MG Tablet PO (20:56)
[2022-12-03] MEDS: Cefazolin 1 GM/50 ML BAG IV (00:51)
[2022-12-03 00:52] VITALS: BP 100/61; PULSE 88; RESP 18; TEMP 37.2; O2SAT 93
[2022-12-03] MEDS: MELATONIN 3 MG TABLET PO (00:58)
[2022-12-03 06:06] LABS: Hematocrit 32.4 % (37-47); Hemoglobin 10.4 g/dL (12.0-15.0); Mean Corp Hgb Conc 32.1 g/dL (32-36); Mean Corpuscular Hgb 30.7 pg (27.0-32.0); Mean Corpuscular Volume 95.6 fL (81-99); Mean Platelet Vol. 9.2 fl (6.2-12.0); Platelet Count 331 K/mm3 (150-450); RBC Distribution Width CV 13.4 % (11.6-14.6); Red Blood Count 3.39 M/mm3 (4.2-5.4); White Blood Count 8.4 K/mm3 (4.4-11.0)
[2022-12-03 06:44] VITALS: BP 103/59; PULSE 91; RESP 18; TEMP 37.1; O2SAT 92
[2022-12-03] MEDS: oxyCODONE 5 MG Tablet PO ×4 (06:51→20:05)
[2022-12-03 07:25] LABS: Anion Gap 5 (5-15); BUN 15 mg/dL (7-18); BUN/Creat Ratio 20.9 RATIO (10-20); Calcium,Total 8.4 mg/dL (8.5-10.1); Chloride 106 mmol/L (98-107); Creatinine, Serum 0.72 mg/dL (0.55-1.02); EST Glomerular Filtration Rate 82 mL/min (>60); Est Glom Filt Rate - Afr Amer 100 mL/min (>60); Estimated Creatinine Clearance 33.14 ml/min; Glucose 125 mg/dL (74-106); Potassium 3.9 mmol/L (3.5-5.1); Sodium Level 140 mmol/L (136-145)
[2022-12-03] MEDS: Rivaroxaban 10 MG Tablet PO (08:35)
[2022-12-03] MEDS: Senna/Docusate Sodium 1 Tablet 2 TABLET PO ×2 (08:35→20:05)
[2022-12-03] MEDS: HYDROmorphone 0.5 MG/0.5 ML SYRINGE IV (08:40)
--- NOTE | 2022-12-03 09:38 | PCM.PN.ORT ---
Subjective Subjective Patient is postoperative day #1 from left hip cemented bipolar hemiarthroplasty. She denies chest pain or shortness of breath. She denies calf pain or swelling. Pain is well controlled with oral medications. She is hoping for discharge to home soon. Objective Data Objective Data Left hip bandages on clean and dry. There is no blood on the Mepilex dressing. There is no significant bruising or swelling about the site. Clinically leg lengths are equal. She had no calf pain or swelling bilaterally negative Homans' sign bilaterally TOMMIE hose and SCDs are on. Distal pulses and sensation are intact. Good strength resisted plantarflexion dorsiflexion toes and ankles. No hip pain with flexion to 50 degrees or rotation. Hip was not overly stressed. X-rays reviewed postoperative AP and lateral left hip shows a cemented bipolar hemiarthroplasty in good position without obvious loosening failure or fracture. No signs of residual pathology Vital Signs: Vital Signs Temp Pulse Resp BP Pulse Ox O2 Del Method 98.7 F 91 18 103/59 L 92 Room Air 12/03/22 06:44 12/03/22 06:44 12/03/22 06:44 12/03/22 06:44 12/03/22 06:44 12/03/22 06:44 Oxygen Delivery Method Room Air Weight: 48.4 kg Body Mass Index (BMI) 18.8 Intake & Output: Intake and Output for Last 24 Hours 12/01/22 12/02/22 12/03/22 23:59 23:59 23:59 Intake Total 3230.00 / 3230.00 262.5 / 262.5 Balance 3230.00 / 3230.00 262.5 / 262.5 Lab / Micro Data 12/03/22 05:13 12/03/22 05:13 Labs: Laboratory Results - last 24 hr 12/03/22 05:13: WBC 8.4, RBC 3.39 L, Hgb 10.4 L, Hct 32.4 L, MCV 95.6, MCH 30.7, MCHC 32.1, RDW Std Deviation 47.0 H, RDW Coeff of Bruce 13.4, Plt Count 331, MPV 9.2, Sodium 140, Potassium 3.9, Chloride 106, Carbon Dioxide 29.0, Anion Gap 5, BUN 15, Creatinine 0.72, Estim Creat Clear Calc 33.14, Est GFR (MDRD) Af Amer 100, Est GFR (MDRD) Non-Af 82, BUN/Creatinine Ratio 20.9 H, Glucose 125 H, Calcium 8.4 L Micro: Microbiology 12/02/22 08:50 Incision/Surgical Site Gram Stain - Final Radiography Diagnostic Testing: Radiology Impression Hip X-Ray 12/02/22 10:55 IMPRESSION: Postoperative air and soft tissue swelling following successful left hip metallic hip arthroplasty when compared to preoperative radiographs of 12/01/2022. Electronically Signed: Fernando Ortiz MD at 12:26 EDT , Assessment & Plan Assessment/Plan (1) Fracture of head of left femur: PLAN: Plan Her diagnosis and treatment options regarding her left femoral head fracture, possible metastatic process, possible primary bone tumor, possible infection or other etiology discussed with her at length. She understands there is pathology pending which may help determine a more definitive diagnosis. She also understands cultures are pending. I did explain to her our intraoperative decision making process that included sending images of her femoral head to Dr. Sanabria as well as reviewing the case with him on the phone intraoperatively. Possible surgical decisions included Girdlestone type procedure, two-stage surgery with a loosely press-fit stem with plan to return to surgery after more definitive diagnosis and nonweightbearing, or proceeding with proposed cemented hemiarthroplasty. After prolonged discussion it was decided proceeding with cemented hemiarthroplasty would be the most beneficial procedure. Patient is happy that we proceeded with definitive approach. She understands further surgery could be warranted if there is infection or possibly cancer. No guarantees were stated or implied She understands we may have further diagnostic information tomorrow. She understands hip dislocation precautions. She can be weightbearing as tolerated. She will follow-up in the office in 2 weeks. She does have a history of stents. We will place her back on her 81 mg aspirin daily as well as Xarelto for DVT prevention. Mild postoperative anemia expected for fracture, procedure. We will follow
[2022-12-03] MEDS: Aspirin E.C. 81 MG Tablet PO (11:03)
[2022-12-03 12:40] VITALS: BP 109/53; PULSE 78; RESP 17; TEMP 37.4; O2SAT 98
--- NOTE | 2022-12-03 15:44 | PN.HOSP_ITS ---
Reason for Visit Reason for Visit: Diagnoses Unspecified fracture of head of left femur, initial encounter for closed fractu re (12/01/22) Subjective Subjective Patient was seen and examined today, she has no complaints of any hip pain at rest. Objective Data Objective Data Vital Signs: Vital Signs Temp Pulse Resp BP Pulse Ox O2 Del Method 99.3 F H 78 17 109/53 L 98 Room Air 12/03/22 12:40 12/03/22 12:40 12/03/22 12:40 12/03/22 12:40 12/03/22 12:40 12/03/22 12:40 Oxygen Delivery Method Room Air Weight: 48.4 kg Body Mass Index (BMI) 18.8 Intake & Output: Intake and Output for Last 24 Hours 12/01/22 12/02/22 12/03/22 23:59 23:59 23:59 Intake Total 3230.00 / 3230.00 502.5 / 502.5 Balance 3230.00 / 3230.00 502.5 / 502.5 Lab / Micro Data 12/03/22 05:13 12/03/22 05:13 Labs: Laboratory Results - last 24 hr 12/03/22 05:13: WBC 8.4, RBC 3.39 L, Hgb 10.4 L, Hct 32.4 L, MCV 95.6, MCH 30.7, MCHC 32.1, RDW Std Deviation 47.0 H, RDW Coeff of Bruce 13.4, Plt Count 331, MPV 9.2, Sodium 140, Potassium 3.9, Chloride 106, Carbon Dioxide 29.0, Anion Gap 5, BUN 15, Creatinine 0.72, Estim Creat Clear Calc 33.14, Est GFR (MDRD) Af Amer 100, Est GFR (MDRD) Non-Af 82, BUN/Creatinine Ratio 20.9 H, Glucose 125 H, Calcium 8.4 L Micro: Microbiology 12/02/22 08:50 Incision/Surgical Site Gram Stain - Final Physical Exam Narrative alert, oriented x3, no apparent distress, average body habitus and healthy appearing General Appearance: cooperative, well kempt and well developed Orientation / Consciousness: awake, oriented to person, oriented to place and oriented to time HEENT normocephalic, head/scalp atraumatic and moist oral mucous membranes Eyes PERRL, EOMs intact bilaterally and conjunctivae normal Neck supple, no JVD, thyroid normal and no carotid bruits General: trachea midline Resp normal respiratory effort, no retractions, no use of accessory muscles and clear to auscultation bilaterally Auscultation: Negative for rales, rhonchi or wheezes Cardio regular rate, regular rhythm, S1 normal heart sound, S2 normal heart sound, no murmurs, no rub and no gallops GI normal to inspection, nondistended, normoactive bowel sounds, soft to palpation, non-tender and non-distended Neuro oriented x3, CN's II-XII intact bilaterally, moves all extremities, no focal motor deficits and no sensory deficits noted Sensorium / Orientation: awake and alert Speech: speech normal Psych affect normal Assessment & Plan Assessment/Plan (1) Fracture of head of left femur: PLAN: Plan 1. Left hip displaced femoral head fracture-postop day 1 left hemiarthroplasty- PT and OT will see the patient, patient states that she plans on going home at the time of discharge from the hospital. #2 essential hypertension-patient is not currently on any medications, her blood pressure will be monitored #3 coronary artery disease-patient is on aspirin and Lipitor #4 hyperlipidemia-patient is on Lipitor Clinical time spent by myself addressing the patient's medical issues, reviewing all of her data, and collaborating with patient's care team: 25 minutes Charges/Coding Visit Charges Inpatient E&M: 06378 Subs Hosp L1
[2022-12-03 16:00] VITALS: BP 101/68; PULSE 94; RESP 17; TEMP 37.4; O2SAT 94
[2022-12-03 19:58] VITALS: BP 104/58; PULSE 87; RESP 18; TEMP 37.1; O2SAT 94
[2022-12-03] MEDS: Atorvastatin Calcium 10 MG Tablet PO (20:04)
[2022-12-03] MEDS: 0.9% Saline Lock 10 ML Syringe IV (20:06)
[2022-12-04 06:14] VITALS: BP 108/60; PULSE 95; RESP 18; TEMP 37.3; O2SAT 93
[2022-12-04] MEDS: oxyCODONE 5 MG Tablet PO (06:19)
[2022-12-04 06:23] LABS: Hematocrit 31.4 % (37-47); Mean Corp Hgb Conc 31.8 g/dL (32-36); Mean Corpuscular Hgb 30.5 pg (27.0-32.0); Mean Corpuscular Volume 95.7 fL (81-99); Mean Platelet Vol. 9.3 fl (6.2-12.0); Platelet Count 314 K/mm3 (150-450); RBC Distribution Width CV 13.5 % (11.6-14.6); RBC Distribution Width SD 47.8 fl (35.1-43.9); Red Blood Count 3.28 M/mm3 (4.2-5.4); White Blood Count 7.5 K/mm3 (4.4-11.0)
[2022-12-04 06:55] VITALS: O2SAT 80
[2022-12-04 08:00] VITALS: PULSE 90
[2022-12-04] MEDS: Senna/Docusate Sodium 1 Tablet 2 TABLET PO (08:11)
[2022-12-04] MEDS: Rivaroxaban 10 MG Tablet PO (08:12)
[2022-12-04] MEDS: Aspirin E.C. 81 MG Tablet PO (08:13)
[2022-12-04 09:48] VITALS: BP 96/86; PULSE 100; RESP 14; TEMP 36.8; O2SAT 92
--- NOTE | 2022-12-04 10:17 | DCINST_ITS ---
Discharge Instructions Diet Discharge Diet: No restrictions Activity Discharge Activity: Return to Normal Activity, Use Walker and - (Hip dislocation precautions) Weight Bearing Status: Full weight bearing Follow Up Care Test Results: Test results from this visit will be discussed in further detail at your follow- up appointment, if applicable. Discharge Plan Admission Admit Date/Time: 12/01/22 18:39 Primary Reason for Your Visit: Left hip fracture Attending Provider: Dimitri Harris Primary Care Provider: Taryn Fry Consulting Providers: Chandu Bloom Instructions Additional Instructions / Restrictions: After your Xarelto is finished, increase your 81 mg aspirin to 1 twice a day for 2 weeks, then reduce it to 1/day thereafter Follow hip dislocation precautions Discharge Orders/Prescriptions Prescriptions: New oxycodone 5 mg Tablet 5 mg PO Q4H PRN PRN (Reason: Pain Score 4-10) 3 Days Qty: 15 0RF Xarelto 10 mg Tablet 10 mg PO DAILYCM Qty: 14 0RF Rx Instructions: Take for 2 weeks Continued atorvastatin 10 mg tablet 10 mg PO QHS aspirin [Adult Low Dose Aspirin] 81 mg tablet,delayed release (DR/EC) 81 mg PO DAILY Referrals / Follow Up: Taryn Fry MD [Primary Care Provider] - Santiago Larson MD [Med Staff - Active Staff] - See Referral Note (In 2 weeks, call for an appointment) Disposition Disposition (needs filled in before D/C Order can be placed): Home, Self Care
--- NOTE | 2022-12-04 10:26 | DS.PCM_ITS ---
Providers Date of Admission: 12/01/22 Date of Discharge: 12/04/22 Primary Care Physician: Dr. Taryn Fry MD Consultations 12/01/22 20:01 Consult: Orthopedics Routine Consulting Provider: Santiago Larson Reason for Consult: Left femoral head fracture EMERGENT Consult: No MD Notified: No Date Notified: 12/01/22 Time Notified: 18:57 Reason For Visit: LEFT FEMORAL HEAD FRACTURE Diagnosis Discharge Diagnosis (1) Fracture of head of left femur: Status: Acute Code(s): S72.052A - Unspecified fracture of head of left femur, initial encounter for closed fracture Plan 1. Left hip displaced femoral head fracture-postop day 1 left hemiarthroplasty- PT and OT will see the patient, patient states that she plans on going home at the time of discharge from the hospital. #2 essential hypertension-patient is not currently on any medications, her blood pressure will be monitored #3 coronary artery disease-patient is on aspirin and Lipitor #4 hyperlipidemia-patient is on Lipitor #5 acute blood loss anemia secondary to expected blood loss from left hip fra cture Clinical time spent by myself addressing the patient's medical issues, reviewing all of her data, and collaborating with patient's care team: 31 minutes Medications at Discharge Home Medications aspirin 81 mg tablet,delayed release (Adult Low Dose Aspirin) 81 mg PO DAILY heart health 11/23/20 atorvastatin 10 mg tablet 10 mg PO QHS cholesterol 11/23/20 oxycodone 5 mg tablet 5 mg PO Q4H PRN PRN Pain Score 4-10 3 days #15 tabs 12/04/22 rivaroxaban 10 mg tablet (Xarelto) 10 mg PO DAILYCM #14 tabs 12/04/22 Hospital Course Operations total hip replacement (Hemiarthroplasty left hip) Procedures None Summary of Care Provided Minutes Spent on Discharge: 31 Hospital Course: This 82-year-old white female was seen in the emergency room at [facility] with complaints of left hip pain x2 weeks, patient denied any trauma to her hip and she denied any falls. Work-up in the emergency room included hip x-rays which indicated that the patient had a full left femoral head fracture, CT scan was ordered and it confirmed the presence of a fracture. Patient was admitted to [place] [address] and seen in consultation by orthopedic surgery who performed a left hemiarthroplasty on the patient. Patient had no untoward events after the surgery and did well with PT and OT. Patient desired to go home rather than to an extended care facility or rehab center. On 12/04/2022, patient was seen and examined: On examination she appeared in good health and spirits, she does not appear to be in any distress. Vital signs as documented. Skin warm and dry and without overt rashes. Neck without JVD, thyroid appears normal, trachea is midline, neck is supple. Lungs clear, normal air movement was noted. Heart exam notable for regular rhythm, normal sounds and absence of murmurs, rubs or gallops. Abdomen unremarkable and without evidence of organomegaly, masses, or abdominal aortic enlargement, bowel sounds are present in all 4 quadrants, no abdominal tenderness was noted. Extremities nonedematous, no cyanosis was noted, no clubbing was noted. Neuro: Cranial ne rves II through XII are grossly intact, no focal motor deficits were noted, sensation to light touch and pinprick is intact, motor exam 5/5 throughout. Psych: Patient is alert and oriented x3, she does not appear anxious or depressed, she does not appear agitated. On 12/04/2022 patient appears stable for discharge home. Weight / BMI Weight Weight: 48.4 kg Body Mass Index (BMI) 18.8 ABG / Lab / Microbiology Data 12/04/22 05:50 12/03/22 05:13 Laboratory: Laboratory Results - last 24 hr 12/04/22 05:50: WBC 7.5, RBC 3.28 L, Hgb 10.0 L, Hct 31.4 L, MCV 95.7, MCH 30.5, MCHC 31.8 L, RDW Std Deviation 47.8 H, RDW Coeff of Bruce 13.5, Plt Count 314, MPV 9.3 Microbiology: Microbiology 12/02/22 08:50 Incision/Surgical Site Gram Stain - Final 12/02/22 08:50 Incision/Surgical Site Wound Culture - Final No growth aerobically. D/C Instructions Discharge Diet: No restrictions Weight Bearing Status: Full weight bearing Meaningful Use Info Meaningful Use Diagnoses (Choose all that apply): None applicable Discharge Plan Admission Admit Date/Time: 12/01/22 18:39 Primary Reason for Your Visit: Left hip fracture Attending Provider: Dimitri Harris Primary Care Provider: Taryn Fry Consulting Providers: Chandu Bloom Instructions Additional Instructions / Restrictions: After your Xarelto is finished, increase your 81 mg aspirin to 1 twice a day for 2 weeks, then reduce it to 1/day thereafter Follow hip dislocation precautions Discharge Orders/Prescriptions Prescriptions: New oxycodone 5 mg Tablet 5 mg PO Q4H PRN PRN (Reason: Pain Score 4-10) 3 Days Qty: 15 0RF Xarelto 10 mg Tablet 10 mg PO DAILYCM Qty: 14 0RF Rx Instructions: Take for 2 weeks Continued atorvastatin 10 mg tablet 10 mg PO QHS aspirin [Adult Low Dose Aspirin] 81 mg tablet,delayed release (DR/EC) 81 mg PO DAILY Referrals / Follow Up: Taryn Fry MD [Primary Care Provider] - Santiago Larson MD [Med Staff - Active Staff] - See Referral Note (In 2 weeks, call for an appointment) Disposition Disposition (needs filled in before D/C Order can be placed): Home, Self Care Charges/Coding Visit Charges Inpatient E&M: 31182 Disch Hosp >30min
--- NOTE | 2022-12-04 11:02 | PHA.DC_ITS ---
Pharmacy [facility] Service has performed discharge medication reconciliation and counseling for this patient. The patient's discharge medication list was reviewed for discrepancies and discrepancies were resolved. The patient was counseled on the following discharge medications and changes in medications for homegoing were reviewed. The Reason for Use, instructions for use, and potential side effects were reviewed for all new medications. The patient's questions regarding all of their medications were answered. 1. Oxycodone 5 mg PO Q4H PRN pain The patient was able to verbally demonstrate an understanding of their discharge medications. Medications at Discharge Home Medications aspirin 81 mg tablet,delayed release (Adult Low Dose Aspirin) 81 mg PO DAILY heart health 11/23/20 atorvastatin 10 mg tablet 10 mg PO QHS cholesterol 11/23/20 oxycodone 5 mg tablet 5 mg PO Q4H PRN PRN Pain Score 4-10 3 days #15 tabs 12/04/22 oxycodone 5 mg tablet 5 mg PO Q4H PRN pain 3 days #15 tabs 12/04/22 oxycodone 5 mg tablet 5 mg PO Q4H PRN pain 3 days #15 tabs 12/04/22 rivaroxaban 10 mg tablet (Xarelto) 10 mg PO DAILYCM #14 tabs 12/04/22
--- NOTE | 2022-12-04 11:09 | CASEMGMT ---
Addendum entered by Denise Graves 12/04/22 11:44: CHANTELLE CONDON back into pt room, pt states she has changed her mind and does not think she wants HHC now. Discussed having outpt therapy again. Pt states she would be agreeable to this. Asked if this RN CM could set up for her and she states she is not sure she is going to need it and she will set it up. Discussed if transportation is a concern, the [facility] van could provide transportation should she choose [facility]. Pt denies any further needs at this time. Original Note: TC to [facility], pt cost for xarelto is $281.49. RN CM into pt room, pt sitting up in chair. Discussed dc planning, pt states she would like HHC. Patient was provided a list of HHC providers including quality and resource use data and consistent with the patient?s preferred geographic region, medical needs, and insurance network were provided from the [employer] Guide. Pt to review for her top 3 preferences, CHANTELLE CONDON to check back. Pt states the xarelto is affordable to her.
--- NOTE | 2022-12-04 12:37 | NURSING ---
[id number] Larson's office, (Dr. Larson is in surgery) spoke with Dr larson, reported back to this nurse that Dr Larson will not come to see the pt prior to discharge.
[2022-12-04 13:33] VITALS: BP 131/84; PULSE 114; RESP 20; TEMP 37.2; O2SAT 96
--- NOTE | 2022-12-04 14:23 | NURSING ---
Xavier from Dr Larson: follow up in [address] Larson. may shower, remove dressing in 5 days and apply new if needed, otherwise leave open to air.
--- NOTE | 2022-12-04 14:49 | CHAPLAIN ---
Type of Pastoral Visit _x__ Initial Visit ___ Follow-up Visit ___ On-call Visit ___ General Patient Visit ___ Spiritual Assessment ___ Family Conference ___ Bereavement ___ Rapid Response ___ Code Blue ___ Other (describe below) Pastoral Care Referral From _x__ Patient ___ Family ___ Nurse ___ Physician ___ Process Machine Operator ___ Vocational Psychologist ___ Other (describe below) Sacrament/Intervention _x__ Active listening ___ Anointing ___ Christian ___ Bereavement ___ Communion ___ Carmen exploration ___ _x__ Life review _x__ Prayer ___ Reconciliation ___ Sacrament of Sick ___ Supportive presence ___ Wedding ___ Other (describe below) Pastoral Comments patient is descriptive about her health need and thanks is expressed for the care and remedy of situation; pt lives alone but has great neighbors per her report; pt is well connected to muslim and uses [employer] as a great resource for her life; pt displays excellent and positive attitude about her future even as she speaks of today as one year anniversary over husbands ; prayer and presence welcomed
== END 2022-12-04 14:51 | disposition home or self-care (01) | DRG 522 ==
LOC: ED 16:36 → MS3 18:57
PROVIDERS: Anesthesiology; Orthopaedic Surgery; Admitting Provider Hospitalist; Emergency Provider Student in an Organized Health Care Education/Training Program; PCP Internal Medicine; Visit Provider Internal Medicine
PROC: 0SRS0J9 Replacement of Left Hip Joint, Femoral Surface with Synthetic Substitute, Cemented, Open Approach (ICD-10-PCS; CPT 27125; principal; 2022-12-02 08:00)
DX: M84.652A Pathological fracture in other disease, left femur, initial encounter for fracture (principal); M87.052 Idiopathic aseptic necrosis of left femur; I10 Essential (primary) hypertension; E78.2 Mixed hyperlipidemia; I25.10 Atherosclerotic heart disease of native coronary artery without angina pectoris; Z66 Do not resuscitate; Z79.01 Long term (current) use of anticoagulants; Z79.82 Long term (current) use of aspirin; Z79.899 Other long term (current) drug therapy; Z95.5 Presence of coronary angioplasty implant and graft; Z96.642 Presence of left artificial hip joint
CPT/HCPCS: 36415; 71045; 73502; 73700; 80048; 84484; 85025; 85027; 86850; 86900; 86901; 87070; 87075; 87205; 88305; 88311; 93005; 94668; 97162; 97166; 97530; 97535; 99252; 99283; C1776; J7120; A4216; G0463; J2405